=== PATIENT | male | born 1990 | race Caucasian/White ===

== ENCOUNTER 2021-02-18 10:15 | Emergency (ER) | payer MEDICAID ==
[~2021-02-18] VITALS: Ht 167.6 cm; Wt 65.0 kg
[~2021-02-18 10:15] MED LIST: DIAZ5TAB PO; HYDR1TAB PO; NO HOME MEDS; SULF1TAB45 PO
[2021-02-18 10:35] VITALS: BP 127/72
[2021-02-18] MEDS ORDERED: IBUP-1986 PO (10:38)
[2021-02-18] MEDS ORDERED: CYCL5TAB PO (10:38)
== END 2021-02-18 11:35 | disposition home or self-care (01) ==
LOC: ER 10:16
DX: M54.50 Low back pain, unspecified (principal); Z90.49 Acquired absence of other specified parts of digestive tract; Z56.0 Unemployment, unspecified; Z79.899 Other long term (current) drug therapy
CPT/HCPCS: 99283

== ENCOUNTER 2021-06-21 15:00 | Emergency (ER) | payer MEDICAID ==
[~2021-06-21] VITALS: Ht 167.6 cm; Wt 65.9 kg
[~2021-06-21 15:00] MED LIST changes: +CYCL5TAB PO; +IBUP-1986 PO
[2021-06-21 15:01] VITALS: BP 115/54
[2021-06-21] MEDS ORDERED: IBUP-1986 PO (15:51)
[2021-06-21] MEDS ORDERED: AMOX-100 PO (15:51)
== END 2021-06-21 16:00 | disposition home or self-care (01) ==
LOC: ER 15:00
DX: K08.89 Other specified disorders of teeth and supporting structures (principal); K04.7 Periapical abscess without sinus; Z90.49 Acquired absence of other specified parts of digestive tract; Z56.0 Unemployment, unspecified; Z79.2 Long term (current) use of antibiotics; Z79.899 Other long term (current) drug therapy
CPT/HCPCS: 99283

== ENCOUNTER 2023-10-17 23:36 | Emergency (ER) | payer MEDICAID ==
[~2023-10-17] VITALS: Ht 167.6 cm; Wt 66.8 kg
[2023-10-17 23:38] VITALS: TEMP 98
[2023-10-18] MEDS ORDERED: AMOX-117 PO (01:19)
[2023-10-18] MEDS: ketorolac tromethamine 15mg/ml inj. IM ONE (01:24)
[2023-10-18] MEDS: CefTRIAXone 1000mg IM Kit (w/lidocaine diluent) IM ONE (01:25)
[2023-10-18 01:59] VITALS: BP 108/86; PULSE 97; RESP 18; O2SAT 99
== END 2023-10-18 02:09 | disposition home or self-care (01) ==
LOC: ER 23:36
DX: K04.7 Periapical abscess without sinus (principal); K08.89 Other specified disorders of teeth and supporting structures; Z79.899 Other long term (current) drug therapy; Z79.2 Long term (current) use of antibiotics; Z79.1 Long term (current) use of non-steroidal anti-inflammatories (NSAID); Z98.890 Other specified postprocedural states
CPT/HCPCS: 96372; 99284; J0696; J1885